=== PATIENT | female | born 1980 ===

== ENCOUNTER 2019-10-07 15:53 | Inpatient (IN) | payer BC ==
[2019-10-07] MEDS ORDERED: Iopamidol-370 76% 500 ML 1 ML ONE (16:06)
[2019-10-07 17:08] LABS: Hemoglobin 11.8 g/dL (12.0-16.0); Mean Corpuscular HGB CONC 33.4 g/dL (32.0-36.0); Mean Corpuscular Hemoglobin 34.8 pg (27.0-31.0); RBC Distribution Width 13.1 % (11.5-14.5)
[2019-10-07 17:29] LABS: Band 23 % (5-11); Large Platelets SLIGHT; Lymphocytes 19 % (21-51); MDiff Complete? YES; Mean Platelet Volume 11.2 fL (7.4-10.4); Metamyelocyte 5 % (0-0); Monocytes 6 % (0-10); Myelocyte 3 % (0-0); Neutrophil 44 % (42-75); Platelet Count 46 thou/uL (130-400)
[2019-10-07] MEDS ORDERED: Lorazepam 2 MG/ML VIAL ONE ×2 (17:49→23:03)
[2019-10-07 18:33] LABS: Chloride 101 mmol/L (98-107); Potassium 3.9 mmol/L (3.5-5.1); Sodium 138 mmol/L (136-145)
[2019-10-07 18:34] LABS: Calcium 9.5 mg/dL (7.8-10.44)
[2019-10-07 18:35] LABS: Globulin 3.5 g/dL (2.4-3.5); Glucose 119 mg/dL (70-105); Protein, Total 7.5 g/dL (6.0-8.3)
[2019-10-07 18:36] LABS: Anion Gap 23 mmol/L (10-20); Carbon Dioxide 18 mmol/L (22-29)
[2019-10-07 18:37] LABS: Alcohol Less than 10 mg/dL (Less than 10); Bilirubin, Total 7.9 mg/dL (0.2-1.2)
[2019-10-07 18:38] LABS: Alkaline Phosphatase 132 U/L (40-110); Calc. Creatinine Clearance 0 mL/min (70-130); Estimated GFR-MDRD 83
[2019-10-07 18:39] LABS: BUN (Urea Nitrogen) 6 mg/dL (7.0-18.7)
[2019-10-07 18:40] LABS: AST (SGOT) 296 U/L (5-34)
[2019-10-07 18:41] LABS: ALT (SGPT) 68 U/L (8-55)
--- NOTE | 2019-10-07 18:51 | CT ---
CT BRAIN: 10/07/2019 PROVIDED CLINICAL HISTORY: Frequent falls. FINDINGS: The ventricular system appears normal in size and morphology. There is no evidence for intracranial h emorrhage or mass effect. The extracranial soft tissues and osseous structures demonstrate an unremar kable CT appearance. IMPRESSION: No evidence for intracranial hemorrhage or mass effect. POS: SANDRITA
[2019-10-07] MEDS ORDERED: Thiamine 100 MG TAB ONE (19:07)
[2019-10-07 19:14] LABS: Pregnancy Test - Urine (BHCG) Negative (Negative); Pregu Control Background? CLEAR/WHITE (CLR/WHITE); Pregu Control Bar Appear? YES (CONTROL BAR); Specific Gravity 1.032 (1.002-1.036)
[2019-10-07 19:17] LABS: Bilirubin 2+ (Negative); Blood, Urine Negative (Negative); Clarity Turbid (Clear); Glucose, Urine (Dipstick) 30 mg/dL (Negative); Leukocyte 75 Leu/uL (Negative); Nitrite Negative (Negative); Protein, Urine (Dipstick) 70 mg/dL (Neg-Trace); RBC/HPF 0-3 HPF (0-3)
[2019-10-07 19:20] LABS: Bacteria/HPF Rare-Few HPF (None Seen)
[2019-10-07 19:23] LABS: Amphetamine Not Detected (NotDetected); Barbiturates Screen Not Detected (NotDetected); Benzodiazepine Screen Not Detected (NotDetected); Cocaine Metabolite Screen Not Detected (NotDetected); Medtox Control Line Valid? VALID (VALID); Medtox Reader # READER 4; Methadone Not Detected (NotDetected); Methamphetamine Not Detected (NotDetected); Opiate Screen Detected (NotDetected); Oxycodone Screen Not Detected (NotDetected); Phencyclidine (PCP) Not Detected (NotDetected); THC/Cannabinoid Screen Not Detected (NotDetected); Tricyclic Screen Not Detected (NotDetected)
[2019-10-07] MEDS ORDERED: Thiamine HCl 200 MG/2 ML VIAL SLOW IVP SCH (19:30)
--- NOTE | 2019-10-07 19:44 | ULT ---
Exam: Right upper quadrant ultrasound: HISTORY: Right upper quadrant pain and jaundice. Elevated liver function tests. COMPARISON: None FINDINGS: Liver: Portions of the liver are obscured due to shadowing from bowel gas and adjacent ribs. However, the liver is enlarged measuring 23.7 cm in craniocaudal dimensions and also demonstrates coarsened echotexture and increased echogenicity likely reflective of diffuse fatty infiltration. Gallbladder: There is increased echogenic material seen within the gallbladder lumen suggesting sludg e within the gallbladder. No definite gallbladder calculus is seen. There is no gallbladder wall thickening or pericholecystic fluid identified. Common bile duct: The common duct is normal in caliber measuring 2 mm in diameter. Pancreas: Mostly obscured due to shadowing from bowel gas, but where visualized, the pancreas does de monstrate a grossly normal sonographic appearance. Right kidney: There is an anechoic cystic appearing structure seen in the midportion right kidney rony suring 2.5 cm which demonstrates sonographic characteristics most compatible with a small parapelvic renal cyst. No hydronephrosis is seen. The right kidney measures 12.5 cm in length. IVC: The visualized IVC demonstrates a normal sonographic appearance. IMPRESSION: 1. Hepatomegaly with diffuse fatty infiltration of the liver. Portions of the liver are obscured due to shadowing from bowel gas and adjacent ribs, but no definitive focal hepatic lesion is delineated on sonographic evaluation. 2. Sludge within the gallbladder lumen. The common duct is normal in caliber measuring 2 mm in diamet er. 3. Right renal parapelvic cyst.
--- NOTE | 2019-10-07 21:46 | CT ---
CT ABDOMEN AND PELVIS WITH IV CONTRAST: HISTORY: Mild right upper quadrant abdominal pain with jaundice. Bloating. COMPARISON: None. FINDINGS: There is atelectasis present at the right lung base and there is also elevation of the right hemidiap hragm. The left lung base is clear. The liver is enlarged, measuring 25.7 cm in craniocaudal dimensions. The liver also demonstrates diff use diminished attenuation, suggesting diffuse fatty infiltration. There is a 9 mm, irregular focus o f enhancement seen within the medial segment of the left hepatic lobe, which is difficult to further characterize. There is a large fluid attenuation density seen involving the superior pole left kidney, measuring 8. 2 cm, compatible with a cyst. Multiple additional hypodense lesions are also seen in the left kidney, also most suggestive of renal cysts. A small, 2.2 cm, hypodense lesion is seen in the mid portion ri ght kidney, also most compatible with a cyst. A few subcentimeter, vcl-kuiib-vd-characterize, hypoden se lesions are seen in the left kidney. The spleen, pancreas, bilateral adrenal glands, abdominal aorta and decompressed urinary bladder demo nstrate a normal CT appearance. The uterus is small in size. There is colonic diverticulosis. The appendix is not visualized but there are no secondary signs to suggest appendicitis. Loops of sma ll bowel are normal in caliber. There is no free fluid, fluid collection or lymphadenopathy seen in the abdomen or pelvis. IMPRESSION: 1. Hepatomegaly with diffuse fatty infiltration of the liver. 2. Subcentimeter focus of enhancement seen within the left hepatic lobe, which is too small to accura tely characterize. Follow up evaluation in 6 months may be helpful. 3. Elevation of the right hemidiaphragm with volume loss right lung base. 4. Bilateral renal cysts. 5. Colonic diverticulosis. 6. Small size of the uterus. POS: H
[2019-10-07 23:22] LABS: Bilirubin, Total 8.5 mg/dL (0.2-1.2)
[2019-10-08 01:03] LABS: HBSAg Index 0.41 S/CO (0-0.99); Hep A IgM AB Non-Reactive (NonReactive); Hep A IgM S/CO 0.13 S/CO (0-0.79); Hep B Surf Ag Non-Reactive S/CO (NonReactive); Hep C IgG Ab Non-Reactive (NonReactive); Hep C Index 0.17 S/CO (0-0.79); Hepatitis B Core IgM Abs Non-Reactive (NonReactive)
[2019-10-08] MEDS ORDERED: Sodium Chloride 0.9% 1,000 ML IV SCH (01:45)
--- NOTE | 2019-10-08 01:52 | HP ---
PRIMARY CARE PHYSICIAN: Dr. Kirby at [facility]. CHIEF COMPLAINT: Weakness, falls, fatigue xdays. HISTORY OF PRESENT ILLNESS: This is a 39-year-old obese female, chronic alcoholic, past medical history of hypertension and anxiety, who presents to [facility] ER for complaints of recurrent falls in the past several days associated with weakness and fatigue, prompting evaluation. The patient notes chronic alcohol dependence, drinking 2 to 3 alcoholic drinks on a nightly basis and admits to withdrawal symptoms with cessation. She reports for the past several weeks, she has been having neuropathy symptoms in her fingers and toes and on Monday, simply fell to the ground and had to be helped up by her spouse. Today, she had two recurrent episodes of falls which she was able to get up on her own without head trauma or syncope, but noted generalized weakness throughout her body and sought evaluation. She denies any abdominal pain, emesis, fevers or chills, but notes nauseating symptoms causing her to gag and unable to take her oral medications. She also notes some sweats after trying to take her oral medications. She notes her urine color appeared to be darker in appearance today but denied infection complaints. Emergency room CBC revealed severe thrombocytopenia of 46 and chemistries revealed elevated liver enzymes with total bilirubin of 7.9, alkaline phosphatase 139, AST 296, ALT 68 with albumin of 4.0. Unremarkable INR. Negative serum HCG and negative serum ethanol level. Chemistries revealed anion gap metabolic acidosis. CT abdomen and pelvis revealed hepatomegaly with 23.7 cm liver and gallbladder ultrasound revealed sludge with CBD of 2 mm. The patient was administered 2 L normal saline bolus, multiple doses of IV Ativan, and hepatitis panel has been ordered. The patient denies any prior history of HIV, hepatitis, or known chronic liver disease. She denies any illicit drug use. Serum ammonia level is 42. At bedside, the patient is accompanied by spouse. She corroborates history. She states her last lab work was approximately two years ago. Has appointment with her primary care physician tomorrow. She is otherwise compliant on her home medications. I have requested nursing staff to add CPK to patient's previous lab work. PAST MEDICAL HISTORY: Morbid obesity, chronic alcohol dependence, hypertension, anxiety. PAST SURGICAL HISTORY: Appendectomy. Last menstrual period, the patient states she is on a Depo injection and has not had a period in long time. SOCIAL HISTORY: The patient admits to chronic alcohol dependence, drinking at least three mixed drinks on a nightly basis. She denies tobacco or illicit drug use. ALLERGIES: REPORTED TO BENADRYL. REVIEW OF SYSTEMS: Pertinent positives as per HPI. Remainder of review of systems negative. The patient reports decreased oral intake. MEDICATIONS: Reviewed as per admission medication reconciliation. FAMILY HISTORY: The patient's mother is and had diabetes and congestive heart failure related complications. PHYSICAL EXAMINATION: VITAL SIGNS: Blood pressure ranges from 105/77 to 140/75, pulse 130, sinus tachycardia, temperature 99.8-100.1, oxygen saturation 98% on room air, respirations 16 to 18, unlabored. GENERAL APPEARANCE: This is a young obese female, awake, alert, oriented, coherent, lucid, jaundiced appearance. HEENT: Normocephalic, atraumatic. No facial asymmetry. Mucous membranes appear moist. Noted scleral icterus. NECK: Supple. CARDIOVASCULAR: S1, S2. Regular rate and rhythm. No harsh murmurs. No reproducible chest wall tenderness to palpation. LUNGS: Bilaterally equal air entry. Clear to auscultation. Nonlabored respirations. No wheezing or rales. ABDOMEN: Soft, obese, nondistended, nonspecific tenderness in upper abdomen. EXTREMITIES: No significant edema or cyanosis or deformities noted. There is abrasions overlying bilateral knees and lower extremities. SKIN: Warm to touch without rash or pallor. Skin jaundice noted. Abrasions overlying lower extremities. LABORATORY VALUES: Ammonia 42. Urine drug screen positive for opioids. Urinalysis with turbid appearance, 4.0 urobilinogen, 2+ bilirubin, 75 leukocytes, elevated 20 white blood cells, 7 to 10 squamous epithelial cells. Urine test negative. Serum alcohol level less than 10. Sodium 138, potassium 3.9, chloride 101, bicarb 18, glucose 119, BUN and creatinine 6/0.77, GFR 83, alkaline phosphatase 132, AST 26, ALT 68, albumin 4.0. WBC 5.0 , H and H 11.8/35.4, MCV 104.0, and platelets 46. IMAGING DATA: Right upper quadrant ultrasound reveals hepatomegaly 23.7 cm with coarsened echotexture and increased echogenicity, likely reflective of diffuse fatty infiltration. No gallbladder wall thickening or pericholecystic fluid, but lumen suggesting sludge. CBD 2 mm in diameter. Noncontrast head CT unremarkable. CT abdomen and pelvis also obtained. ASSESSMENT: 1. Acute liver injury of unspecified etiology. The patient admitted as inpatient status and will be placed on telemetry monitoring. Noted marked hyperbilirubinemia with elevated liver enzymes and no definite obstructive pathology noted. The patient noted to have chronic alcohol dependence and progression of liver disease must also be considered. On-call GI will be consulted. The patient received 2 L normal saline bolus in the ER. We will continue maintenance IV fluids, empiric antibiotics, await hepatitis profile, obtain CPK values to assess for rhabdomyolysis, and trend serial liver function test. We will defer consideration for MRCP to electronic gluing machine operator. 2. Recurrent falls of unspecified etiology. We will need to consider metabolic etiologies including infection with urinary tract infection or cholangitis, as well as hyperammonemia. Serum ammonia level is unremarkable at this time. We will start empiric IV Rocephin 1 g daily and continue IV fluids, monitor CBC and chemistries. 3. Anion gap metabolic acidosis, likely secondary to alcoholic ketoacidosis. The patient repeatedly advised alcohol cessation. We will continue IV fluid resuscitation and monitor chemistries. 4. Thrombocytopenia, likely secondary to liver disease and possibly splenic sequestration. Monitor CBC. 5. Generalized weakness and deconditioning, likely secondary to acute liver injury. We will obtain CPK to assess for any concerns for rhabdomyolysis. 6. Peripheral neuropathy. Possible secondary to chronic alcohol dependence and nutritional deficiencies. The patient will benefit from B12 and folate institution. 7. Macrocytosis. Likely secondary to chronic liver disease and possible nutritional deficiencies. 8. Morbid obesity. Unspecified BMI 9. Sinus tachycardia. The patient reports known history of tachycardia and is on once daily oral metoprolol at home, which she was intolerant of this morning. We have asked nursing staff to give 5 mg IV Lopressor and monitor resting heart rates. 10. Hypertension, benign. Deep venous thrombosis prophylaxis. SCDs and ambulation setting. Severe thrombocytopenia. Check a.m. labs, 10/08/2019. DISPOSITION: Inpatient admission. Plan of care discussed with patient's spouse at bedside. The patient seen and examined on 10/07/2019. Job ID: [id number] [id number]
[2019-10-08] MEDS ORDERED: cefTRIAXone\\ROCEPHIN 2 GM in Sodium Chloride 0.9% 100 ML IVPB SCH (02:15)
[2019-10-08] MEDS ORDERED: Metoprolol Tartrate 5 MG/5 ML VIAL IVP SCH (02:30)
[2019-10-08] MEDS: cefTRIAXone\\ROCEPHIN 1 GM in Sodium Chloride 0.9% 100 ML IVPB SCH (02:49)
[2019-10-08] MEDS ORDERED: Ibuprofen 600 MG TAB PO PRN (03:01)
[2019-10-08] MEDS ORDERED: ALPRAZolam 0.25 MG TAB PO PRN (03:02)
[2019-10-08] MEDS ORDERED: Ondansetron PF 4 MG/2 ML Vial IVP PRN (03:05)
[2019-10-08] MEDS ORDERED: traMADol HCl 50 MG TAB PO PRN (03:16)
[2019-10-08 06:10] LABS: ALT (SGPT) 56 U/L (8-55); AST (SGOT) 228 U/L (5-34); Albumin 3.4 g/dL (3.5-5.0); Alkaline Phosphatase 101 U/L (40-110); Anion Gap 16 mmol/L (10-20); BUN (Urea Nitrogen) 6 mg/dL (7.0-18.7); Bilirubin, Total 8.6 mg/dL (0.2-1.2); Calc. Creatinine Clearance 181 mL/min (70-130); Calcium 8.6 mg/dL (7.8-10.44); Carbon Dioxide 22 mmol/L (22-29); Chloride 104 mmol/L (98-107); Estimated GFR-MDRD Greater than 90; Glucose 100 mg/dL (70-105); Potassium 3.8 mmol/L (3.5-5.1); Protein, Total 6.4 g/dL (6.0-8.3); Sodium 138 mmol/L (136-145)
[2019-10-08 06:24] LABS: Band 3 % (5-11); Eosinophils 1 % (0-10); Hemoglobin 10.5 g/dL (12.0-16.0); Lymphocytes 18 % (21-51); MDiff Complete? YES; Mean Corpuscular HGB CONC 33.4 g/dL (32.0-36.0); Mean Corpuscular Hemoglobin 35.3 pg (27.0-31.0); Mean Platelet Volume 11.2 fL (7.4-10.4); Monocytes 12 % (0-10); Neutrophil 66 % (42-75); Platelet Count 36 thou/uL (130-400); Platelet Morphology Comment Appears Decreased; RBC Distribution Width 13.1 % (11.5-14.5); Red Blood Cell (RBC) Count 2.98 mill/uL (4.20-5.40); White Blood Cell (WBC) Count 5.1 thou/uL (4.8-10.8)
[2019-10-08] MEDS ORDERED: Lorazepam 2 MG/ML VIAL ONE (08:11)
[2019-10-08] MEDS ORDERED: Lorazepam 2 MG/ML VIAL SLOW IVP PRN (08:12)
[2019-10-08] MEDS ORDERED: Ziprasidone 20 MG VIAL ONE ×2 (08:16→08:18)
[2019-10-08] MEDS ORDERED: Benzonatate 100 MG CAP PO PRN (08:41)
[2019-10-08] MEDS ORDERED: Docusate 100 MG CAP PO PRN (08:41)
[2019-10-08] MEDS ORDERED: Labetalol HCl 100 MG/20 ML VIAL SLOW IVP PRN (08:41)
[2019-10-08] MEDS ORDERED: Melatonin 3 MG TAB PO PRN (08:41)
[2019-10-08] MEDS ORDERED: FLU VACC QS2019-20(6MOS UP)/PF 60 MCG/0.5 ML SYRINGE IM ONE (09:00)
--- NOTE | 2019-10-08 09:02 | RAD ---
EXAM: XR Chest 1 View Portable PROVIDED CLINICAL HISTORY: CODE STATUS COMPARISON: None FINDINGS: Evaluation is limited by patient positioning and patient body habitus. The cardiac silhouette appears enlarged, which may be partially on the basis of these factors as well as portable technique. There is elevation of the right hemidiaphragm of unknown chronicity. No focal consolidation evident. The supine nature of the examination is not sensitive for detection of pleural fluid or pneumothorax, without gross evidence for such. IMPRESSION: Limited examination without evidence for an acute cardiopulmonary process.
[2019-10-08 09:09] LABS: Actual Bicarbonate (HCO3a) 17.8 mEq/L (22-28); Base Excess (BEa) -7.6 mEq/L (-2.0 to +3.0); Calcium, Ionized 1.12 mmol/L (1.12-1.30); Hemoglobin (Hb) 11.3 g/dL (12.0-16.0); Potassium - ABG Lab 4.04 mmol/L (3.70-5.30); pH, Arterial 7.31 (7.35-7.45)
[2019-10-08 09:11] LABS: Puncture Site L.R.
[2019-10-08] MEDS: chlordiazePOXIDE HCl 25 MG CAP PO SCH ×3 (09:12→20:01)
[2019-10-08] MEDS ORDERED: Sodium Chloride 0.9% 500 ML IV SCH (09:30)
[2019-10-08] MEDS: Multivitamins, Adult 10 ML, Folic Acid 1 MG, Thiamine HCl 100 MG in Dextrose 5 %-0.45 %... IV SCH (09:56)
[2019-10-08] MEDS: Lorazepam 2 MG/ML VIAL SLOW IVP PRN ×2 (11:34→21:10)
[2019-10-08 12:10] LABS: Acetaminophen Less than 6.0 mcg/mL (10.0-30.0); Iron 175 ug/dL (50-170); Iron Binding Capacity, Total 168 mcg/dL (265-497)
--- NOTE | 2019-10-08 12:17 | CON ---
DATE OF CONSULTATION: 10/08/2019 REASON FOR CONSULTATION: Elevated LFTs. HISTORY OF PRESENT ILLNESS: Michaela Connors is a 39-year-old woman who was admitted to the hospital last night. She has a past history of obesity, hypertension, anxiety, evidently resting tachycardia, and alcohol abuse. She says she will have at least 2 to 3 alcoholic beverages including vodka every night, sometimes more. She reports no prior history of liver disease or hepatitis or gallbladder or pancreatic issues. She says over the past few weeks, she has had progressive overall weakness, has been having some paresthesias in the fingers and toes as well as some nausea. She has not had any vomiting or abdominal pain with this, but then over the past several days, she had several falls at home without injury. She presented to the Emergency Department last night and was found to have a positive UA as well as elevated LFTs significantly. Bilirubin is up to 8.6, AST 228, ALT 56. She was started on IV ceftriaxone as well as IV fluids overnight. She did receive Ativan due to a prior history of alcohol withdrawal. However, this morning, she was transferred to the IMCU after a Code Blue was called. The patient evidently had a seizure and became unresponsive. Also more tachycardic and hypotensive. She is currently in the IMCU. Her mental status is actually clear. She is not complaining of any pain. She is saturating well on a nonrebreather mask. She is visibly jaundiced. She denies taking any acetaminophen at all. She says she does frequently take nonsteroidal anti-inflammatory drugs. She says her last drink of alcohol was 2 days ago. Imaging did not demonstrate any biliary dilation, but she does have hepatomegaly with fatty liver. REVIEW OF SYSTEMS: Full review of systems including constitutional, head, eyes, ears, nose, throat, GI, , cardiovascular, respiratory, musculoskeletal, neurologic systems is negative except as noted in the HPI. PAST MEDICAL HISTORY: Morbid obesity, alcohol abuse, alcohol withdrawal, hypertension, anxiety, appendectomy. ALLERGIES: BENADRYL. HOME MEDICATIONS: 1. Probiotic daily. 2. Fish oil 100 mg daily. 3. Metoprolol 100 mg p.o. daily. 4. Ranitidine 300 mg p.o. daily. 5. Lisinopril 20 mg p.o. daily. 6. Depo injection. INPATIENT MEDICATIONS: 1. Albuterol p.r.n. 2. Tessalon Perles p.r.n. 3. Ceftriaxone 1 g IV q.24 hours. 4. Librium 25 mg p.o. t.i.d. 5. Docusate p.r.n. 6. Labetalol p.r.n. 7. Ativan p.r.n. 8. Melatonin 3 mg p.o. q.h.s. p.r.n. 9. Metoprolol 100 mg p.o. daily. 10. Banana bag. 11. Zofran p.r.n. SOCIAL HISTORY: The patient will have at least 2 to 3 alcoholic beverages every day, sometimes more. This includes vodka. She denies smoking or drug use. FAMILY HISTORY: Her mother had CHF. She denies any known history of liver disease in the family. PHYSICAL EXAMINATION: VITAL SIGNS: Temperature 100.1, pulse 141, blood pressure 94/67, 100% oxygen saturation on nonrebreather mask. GENERAL: Obese 39-year-old woman, lying in bed comfortably. She is calm. She is able to answer questions appropriately. She is oriented to person and place. SKIN: She is jaundiced. No rashes were palpable. HEENT: Eyes; she has scleral icterus. Extraocular movements intact. ENT; mucous membranes moist. No oral lesions. LYMPH: No submandibular or supraclavicular lymphadenopathy. NECK: Thyroid nontender to palpation. HEART: Regular tachycardia. LUNGS: Clear to auscultation bilaterally. ABDOMEN: Nondistended. Bowel sounds are present. Soft, nontender to palpation. EXTREMITIES: No peripheral edema. VESSELS: Radial pulses 2+ bilaterally. NEUROLOGIC: Cranial nerves 2 through 12 intact bilaterally. No focal deficits. LABORATORY STUDIES: Hemoglobin 10.5, MCV 106, WBC 5.1, platelets 36. Ammonia was initially 42, now up to 240. CK is 661. Sodium 138, potassium 3.8, BUN 6, creatinine 0.68, glucose 100. Urine test negative. Viral hepatitis serology is negative. Total bilirubin 8.6, alkaline phosphatase 101, AST 228, ALT 56, albumin 3.4. Urinalysis positive for leukocyte esterase and shows 11 to 20 wbc's. Urine drug screen is positive for opioids, but otherwise negative. Alcohol level is negative. IMAGING STUDIES: Chest x-ray shows some elevation of the right hemidiaphragm, otherwise negative. Brain CT shows no acute processes. Ultrasound shows gallbladder sludge, but no gallbladder wall thickening. The common bile duct is normal at [address] of the abdomen and pelvis demonstrates hepatomegaly. There is a 9 mm left liver lesion, which is too small to characterize. She has bilateral renal cysts and diverticulosis. Normal-appearing spleen, pancreas, and bowel. There is no free fluid in the abdomen. ASSESSMENT AND PLAN: 1. Acute hepatitis, likely represents acute alcoholic hepatitis. 2. Thrombocytopenia. 3. Sepsis with urinary tract infection. 4. Alcohol abuse with withdrawal, possible seizure this morning. The patient's presentation seems consistent with acute alcoholic hepatitis. With this degree of thrombocytopenia, she likely has some underlying cirrhosis as well. She does meet sepsis criteria and is currently being treated with resuscitation and antibiotics. Note, she has elevated ammonia level, though mental status is clear and there is no asterixis at this time. From the GI standpoint, we will order additional labs including autoimmune markers, ceruloplasmin, iron studies, etc., to assess for other etiologies of liver disease. We will obtain INR. We will get acetaminophen level, though the patient denies taking any acetaminophen. Trend the laboratory studies. We will go ahead and start lactulose. Hold off on any steroids at this time given urinary tract infection. Continue with antibiotics. I see no imaging evident suggestive of biliary obstructive pathology and she is not really having any biliary symptoms, so no need for consideration of MRCP or ERCP. GI will follow along. Please call anytime with questions or concerns. Job ID: [id number]
[2019-10-08 12:23] LABS: Actual Bicarbonate (HCO3a) 16.4 mEq/L (22-28); Base Excess (BEa) -17.7 mEq/L (-2.0 to +3.0); Calcium, Ionized 1.27 mmol/L (1.12-1.30); Carboxyhemoglobin (COHb) 1.2 gm% (0.0-3.0); Hemoglobin (Hb) 12.1 g/dL (12.0-16.0); O2 Tension (PaO2) 83.9 mmHg (80.0-100.0); Potassium - ABG Lab 4.73 mmol/L (3.70-5.30)
[2019-10-08 12:24] LABS: CO2 Tension 89.2 mmHg (35.0-45.0); pH, Arterial 6.88 (7.35-7.45)
[2019-10-08 12:25] LABS: Puncture Site LBA
--- NOTE | 2019-10-08 13:05 | PDOC.EVN ---
Event Note - Event Note Event Note: Responded to code blue this a.m. After administration of Ativan intravenously and Geodon the patient was talking and calm and cooperative. Patient transferred to intermediate [facility] for. Discussed and updated the patient has been with status change. Discussed case with gastroenterology, Dr. Diaz. Acute alcoholic hepatitis, acute alcohol withdrawal with possible withdrawal seizure, elevated ammonia, and altered mental status. Started Librium scheduled. Patient tells me that she drinks 6+ hard liquor vodka drinks per day and this may be downplaying how severe her alcoholism has become. Patient's believes that she is hiding how much she drinks from him. If patient becomes altered or having any further seizure activity she may require intubation. Prognosis guarded.
[2019-10-08] MEDS: Sodium Chloride 0.9% 1,000 ML IV SCH (20:12)
--- NOTE | 2019-10-09 01:32 | CON ---
DATE OF CONSULTATION: 10/08/2019 HISTORY OF PRESENT ILLNESS: Michaela Connors is a 39-year-old daily drinker who was admitted last night after presenting with complaints of frequent falls. She does have history of alcohol withdrawal in the past. She apparently had a seizure today, was transferred to the intermediate care unit. At the time I was consulted, she was awakening, had no recollection of her seizure. Her gas exchange had improved. First blood gas showed a pH of 6.88 with a CO2 of 89. Her second blood gas, pH 7.31, CO2 of 36. PAST MEDICAL HISTORY: Remarkable for: 1. Daily alcohol use. She drinks vodka, but would not admit to drinking more than 2 drinks. Denied drinking large drinks. 2. She has a history of hypertension. 3. History of appendectomy. SOCIAL HISTORY: She is a nonsmoker. ALLERGIES: SHE REPORTS INTOLERANCE TO BENADRYL. REVIEW OF SYSTEMS: Ten point review of system completed, otherwise negative. FAMILY HISTORY: Negative for lung disease in early age. PHYSICAL EXAMINATION: GENERAL: Michaela Connors is a 39-year-old daily drinker who was admitted last night after presenting with complaints of frequent falls. VITAL SIGNS: She is afebrile. Oximetry is 99, blood pressure 127/84. This morning, there is no record of blood pressures this afternoon in the computer. HEENT: Pupils react. Sclerae are slightly icteric. Extraocular movements are intact. NECK: Supple. LUNGS: Clear. HEART: Regular rhythm. ABDOMEN: Soft. EXTREMITIES: Without clubbing, cyanosis, or edema. LABORATORY DATA: Electrolytes are normal. White count 5.1, hemoglobin 10.5, MCV is 106, platelets 36,000. AST 228, ALT is 56, bilirubin is 8.6, alkaline phosphatase is 101. IMPRESSION: 1. Acute on chronic alcoholic hepatitis. 2. Elevated serum ammonia today with an ammonia of 240 at 8 o'clock this morning. 3. Hypoalbuminemia. 4. Thrombocytopenia, most likely related to her alcohol consumption. 5. Anemia of chronic disease. Coag studies probably need to be ordered to complete evaluation of her liver synthetic function. Given her severe hyperbilirubinemia and elevated liver enzymes as well as elevated ammonia, it would not be unreasonable to have Gastroenterology to look in on her , so that she has somebody following this as an outpatient. It has been emphasized to her that abstinence is the only option for her at this point. We will follow the other physicians caring for. She is stable from a cardiorespiratory standpoint at this point in time. This is a 70 minute consult, with greater than 50% of time spent on unit coordinating care. Job ID: [id number] [id number]
[2019-10-09] MEDS: cefTRIAXone\\ROCEPHIN 1 GM in Sodium Chloride 0.9% 100 ML IVPB SCH (01:52)
[2019-10-09 03:48] LABS: INR-International Normal Ratio 1.2; Prothrombin Time 14.7 SEC (12.0-14.7)
[2019-10-09 04:08] LABS: ALT (SGPT) 54 U/L (8-55); AST (SGOT) 204 U/L (5-34); Albumin 3.4 g/dL (3.5-5.0); Alkaline Phosphatase 100 U/L (40-110); Anion Gap 14 mmol/L (10-20); BUN (Urea Nitrogen) 6 mg/dL (7.0-18.7); Bilirubin, Total 9.9 mg/dL (0.2-1.2); Calc. Creatinine Clearance 186 mL/min (70-130); Calcium 8.7 mg/dL (7.8-10.44); Carbon Dioxide 20 mmol/L (22-29); Chloride 106 mmol/L (98-107); Estimated GFR-MDRD Greater than 90; Glucose 93 mg/dL (70-105); Potassium 3.8 mmol/L (3.5-5.1); Protein, Total 6.4 g/dL (6.0-8.3); Sodium 136 mmol/L (136-145)
[2019-10-09 04:40] LABS: Band 9 % (5-11); Eosinophils 1 % (0-10); Hemoglobin 10.1 g/dL (12.0-16.0); Lymphocytes 32 % (21-51); MDiff Complete? YES; Mean Corpuscular HGB CONC 33.1 g/dL (32.0-36.0); Mean Corpuscular Hemoglobin 35.2 pg (27.0-31.0); Mean Platelet Volume 11.4 fL (7.4-10.4); Monocytes 14 % (0-10); Neutrophil 44 % (42-75); Platelet Count 47 thou/uL (130-400); Platelet Morphology Comment Appears Decreased; Red Blood Cell (RBC) Count 2.86 mill/uL (4.20-5.40); White Blood Cell (WBC) Count 6.1 thou/uL (4.8-10.8)
[2019-10-09] MEDS: Sodium Chloride 0.9% 1,000 ML IV SCH ×2 (05:51→16:23)
[2019-10-09] MEDS: chlordiazePOXIDE HCl 25 MG CAP PO SCH ×3 (08:19→20:21)
[2019-10-09] MEDS: Multivitamins, Adult 10 ML, Folic Acid 1 MG, Thiamine HCl 100 MG in Dextrose 5 %-0.45 %... IV SCH (08:19)
[2019-10-09] MEDS ORDERED: Lisinopril 20 MG TAB PO SCH (09:30)
[2019-10-09] MEDS ORDERED: Lactinex Tablet PO SCH (09:30)
[2019-10-09] MEDS: Lorazepam 1 MG TAB PO PRN ×2 (09:32→16:19)
--- NOTE | 2019-10-09 10:00 | PRG ---
DATE OF SERVICE: 10/09/2019 SUBJECTIVE: Ms. Connors is feeling a lot better today. She is mentally clear. She got several hours of sleep last night. No further concern for seizure activity. There is no abdominal pain. She ate a good breakfast this morning. OBJECTIVE: VITAL SIGNS: Temperature 98.6, heart rate 135, blood pressure 138/82, and 95% oxygen saturation on room air. GENERAL: Jaundiced, sitting up in bed comfortably, in no distress. Alert and fully oriented. HEART: Regular. Tachycardia. LUNGS: Clear to auscultation bilaterally. ABDOMEN: Bowel sounds present. Soft, nontender to palpation. EXTREMITIES: No peripheral edema. LABORATORY STUDIES: Hemoglobin 10.1, WBC 6.1, platelets 47. INR is 1.2. Sodium 136, potassium 3.8, BUN 6, creatinine 0.66, calcium 8.7, total bilirubin is up to 9.9, AST is down to 204, ALT has normalized to 54, alkaline phosphatase is 100, albumin is 3.4. Ferritin is elevated at 5228, iron is also elevated to 175, TIBC is low at 168. Serum acetaminophen level was undetectable. Serum total IgG is 1218, which is in normal range. Viral hepatitis serologies are all negative. Further labs including alpha-1 antitrypsin phenotype, ELIO, ASMA, AMA, and ceruloplasmin are all pending. ASSESSMENT AND PLAN: 1. Acute alcoholic hepatitis. 2. Thrombocytopenia. 3. Alcohol abuse with withdrawal. 4. Urinary tract infection. The patient has had significant clinical improvement. Transaminases have been trending down, though bilirubin has trended up. This is not surprising. I discussed with the patient that her presentation is consistent with acute alcoholic hepatitis, but with normal INR, normal creatinine, down trending transaminases, prognosis should be good as long as she completely quit drinking alcohol. We are awaiting further results of liver lab workup, but I do suspect this is all related to alcohol. With the elevated iron studies, we will go ahead and order hemochromatosis genetic profile to rule this out as a contributor. The patient is going to need close outpatient followup to trend the LFTs, and continue to encourage abstinence from alcohol. The patient feels very confident that she will be able to quit completely. Job ID: [id number]
[2019-10-09] MEDS: Lorazepam 2 MG/ML VIAL SLOW IVP PRN ×2 (12:56→20:09)
--- NOTE | 2019-10-09 13:15 | PDOC.HOSPP ---
- Subjective Subjective: Seen and examined. Patient significantly better over the past 24 hours. She is talking in full sentences. She remains very tremulous, has not been using much oral Ativan or intravenous Ativan. Will increase Librium. Some hallucinations from ETOH withdrawal. at bedside, time was given for questions, all answered in detail. Patient and family are happy with plan of care. - Objective Vital Signs & Weight: Vital Signs (12 hours) Temp BP Pulse Ox 10/09/19 11:51 98.2 F 10/09/19 09:31 146/88 H 10/09/19 08:00 95 10/09/19 07:21 98.6 F 10/09/19 04:00 98.0 F Weight Admit Weight 229 lb 4.492 oz Weight 243 lb 2 oz Most Recent Monitor Data Heart Rate from ECG 129 NIBP 135/103 NIBP BP-Mean 113 Respiration from ECG 30 SpO2 96 I&O: 10/08/19 10/09/19 10/10/19 06:59 06:59 06:59 Intake Total 5063 Output Total 1325 Balance 3738 Result Diagrams: 10/09/19 03:32 10/09/19 03:32 Radiology Reviewed by me: Yes Hospitalist ROS - Review of Systems All other systems reviewed; all pertinent +/- noted in HPI/Subj - Medication Medications: Active Medications Generic Name Dose Route Start Last Admin Trade Name Freq PRN Reason Stop Dose Admin Ceftriaxone Sodium 1 gm/ 100 mls @ 200 mls/hr 10/08/19 03:00 10/09/19 01:52 Sodium Chloride IVPB 100 mls Q24HR AYESHA Administration Multivitamins 10 ml/ Folic 1,011.2 mls @ 100 mls/hr 10/08/19 09:30 10/09/19 08:19 Acid 1 mg/ Thiamine HCl 100 mg IV 10/10/19 09:31 1,011.2 mls / Dextrose/Sodium Chloride Q24HR AYESHA Administration Sodium Chloride 1,000 mls @ 100 mls/hr 10/08/19 20:00 10/09/19 05:51 Normal Saline 0.9% IV 1,000 mls .Q10H AYESHA Administration Lactulose 20 gm 10/08/19 15:00 10/09/19 08:18 Lactulose PO 20 gm TID AYESHA Administration Lorazepam 1 mg 10/08/19 08:35 10/09/19 12:56 Ativan SLOW IVP 1 mg Q2H PRN Administration Seizures Lorazepam 1 mg 10/09/19 08:59 10/09/19 09:32 Ativan PO 1 mg Q4H PRN Administration Anxiety/Agitation Melatonin 3 mg 10/08/19 08:41 10/09/19 01:50 Melatonin PO 3 mg HSPRN PRN Administration Insomnia - Exam General - other findings: anxious, tremulous Eye: anicteric sclera ENT: normocephalic atraumatic, moist mucosa Neck: supple, symmetric, no lymphadenopathy Heart: no murmur, no gallops, no rubs Heart - other findings: Sinus tachycardia Respiratory: CTAB, no wheezes, no rales, no ronchi Gastrointestinal: soft, non-tender, no guarding, no rigidity Extremities: no edema Skin: no lesions, no rashes Neurological: cranial nerve grossly intact, no weakness Neurological - other findings: Tremulous/ shaking of hands with intention Musculoskeletal: generalized weakness Psychiatric: A&O x 3 Hosp A/P (1) Alcohol abuse Code(s): F10.10 - ALCOHOL ABUSE, UNCOMPLICATED Status: Acute (2) Alcohol withdrawal delirium Code(s): F10.231 - ALCOHOL DEPENDENCE WITH WITHDRAWAL DELIRIUM Status: Acute (3) Seizure Code(s): R56.9 - UNSPECIFIED CONVULSIONS Status: Acute (4) Alcoholic hepatitis Code(s): K70.10 - ALCOHOLIC HEPATITIS WITHOUT ASCITES Status: Acute (5) Altered mental status Code(s): R41.82 - ALTERED MENTAL STATUS, UNSPECIFIED Status: Acute (6) HTN (hypertension) Code(s): I10 - ESSENTIAL (PRIMARY) HYPERTENSION Status: Acute (7) Obesity Code(s): E66.9 - OBESITY, UNSPECIFIED Status: Acute (8) Alcohol abuse with intoxication with complication Code(s): F10.129 - ALCOHOL ABUSE WITH INTOXICATION, UNSPECIFIED Status: Acute - Plan Plan: Intermediate medical care for gastroenterology consultation, recommendations appreciated pulmonary/critical-care consultation, recommendations patient increase Librium for uncontrolled alcohol abuse with persistent tremor and hallucinations Patient continues to minimize the severity of Etoh use and states she only has 2 drinks per day, she hides it from her but he believes +6 drinks daily oral Ativan PRN withdrawal symptoms IV Ativan PRN agitation and anxiety IV Ativan PRN seizure with acute alcoholic hepatitis consideration for steroids was addressed to myself and gastroenterology, however in the setting of acute urinary tract infection we decided against steroid therapy at this time seizure precautions IV antibiotics urine culture, de-escalate to culture and sensitivity as able status post banana bag IV fluid resuscitation restart home medications for blood pressure and tachycardia blood pressure control blood sugar control G.I. prophylaxis DVT prophylaxis
[2019-10-09] MEDS ORDERED: Lorazepam 2 MG/ML VIAL SLOW IVP SCH (13:30)
[2019-10-09] MEDS: Ziprasidone 20 MG VIAL IM PRN ×2 (13:58→20:09)
[2019-10-09 15:51] LABS: ANA Symphony (Qualitative) Negative (Negative); ANA Symphony (Quantitative) 0.3 Ratio (< 0.7 Negative); EliA Vaculitis New Method **** NEW METHOD ****; Mitochondrial Ab 0.9 U/mL (<4 Negative); dsDNA IgG Antibody Less than 0.5 IU/mL (<10 Negative)
--- NOTE | 2019-10-09 20:20 | PRG ---
DATE OF SERVICE: 10/09/2019 SUBJECTIVE: This morning actually reasonably coherent, cooperative. This afternoon, she began hallucinating. We had a long discussion about her alcohol use with her in the room and I recommended that she get actively involved with alcoholics anonymous perhaps for the rest of her life. Hospitalist is managing medications for alcohol withdrawal. Overall, she is not having any issues that lead me to believe she has any respiratory compromise. IMPRESSION: Encephalopathy. May be hepatic mediated given her acute alcoholic hepatitis. Her ammonia yesterday was 240, so this will probably need to be followed up as well. Her bilirubin has gone up to 9.9. PLAN: We will continue supportive care. Job ID: [id number]
[2019-10-09] MEDS: Melatonin 3 MG TAB PO SCH (20:22)
[2019-10-10] MEDS: cefTRIAXone\\ROCEPHIN 1 GM in Sodium Chloride 0.9% 100 ML IVPB SCH (02:53)
[2019-10-10] MEDS: Sodium Chloride 0.9% 1,000 ML IV SCH ×2 (02:55→10:13)
[2019-10-10 03:57] LABS: INR-International Normal Ratio 1.2; Prothrombin Time 15.3 SEC (12.0-14.7)
[2019-10-10 04:04] LABS: ALT (SGPT) 44 U/L (8-55); AST (SGOT) 169 U/L (5-34); Albumin 3.1 g/dL (3.5-5.0); Alkaline Phosphatase 93 U/L (40-110); Anion Gap 13 mmol/L (10-20); BUN (Urea Nitrogen) 6 mg/dL (7.0-18.7); Bilirubin, Total 10.7 mg/dL (0.2-1.2); Calc. Creatinine Clearance 194 mL/min (70-130); Calcium 8.6 mg/dL (7.8-10.44); Carbon Dioxide 21 mmol/L (22-29); Chloride 111 mmol/L (98-107); Estimated GFR-MDRD Greater than 90; Globulin 2.8 g/dL (2.4-3.5); Glucose 85 mg/dL (70-105); Potassium 3.7 mmol/L (3.5-5.1); Protein, Total 5.9 g/dL (6.0-8.3); Sodium 141 mmol/L (136-145)
[2019-10-10] MEDS: Lorazepam 2 MG/ML VIAL SLOW IVP PRN ×2 (04:11→10:48)
[2019-10-10 05:09] LABS: Band 7 % (5-11); Eosinophils 2 % (0-10); Hemoglobin 9.6 g/dL (12.0-16.0); Lymphocytes 20 % (21-51); MDiff Complete? YES; Macrocytosis SLIGHT = 6-15 cells (100X) (0-5/hpf); Mean Corpuscular Hemoglobin 35.5 pg (27.0-31.0); Mean Platelet Volume 10.7 fL (7.4-10.4); Metamyelocyte 1 % (0-0); Monocytes 18 % (0-10); Neutrophil 52 % (42-75); Platelet Count 77 thou/uL (130-400); Platelet Morphology Comment Appears Decreased; RBC Distribution Width 13.6 % (11.5-14.5); White Blood Cell (WBC) Count 6.5 thou/uL (4.8-10.8)
[2019-10-10] MEDS: Lactinex Tablet PO SCH (07:43)
[2019-10-10] MEDS: chlordiazePOXIDE HCl 25 MG CAP PO SCH ×3 (07:44→21:16)
[2019-10-10] MEDS: Lisinopril 20 MG TAB PO SCH (07:44)
[2019-10-10] MEDS: prednisoLONE 15 MG/5 ML UDCUP PO SCH (10:12)
--- NOTE | 2019-10-10 12:37 | PDOC.HOSPP ---
- Subjective Subjective: Patient and IMCU, at bedside, questions are asked, all answered in detail. Patient not hallucinating this morning. Patient is not tremulous to shaky. She did miss a dose of Librium last night with somnolence. I have gone down on Librium today. If she is having any shaking later on in the afternoon we will use Ativan. Patient having some upper airway stridor over her larynx. No sore throat. No wheezing on oscillatory exam. With alcoholic hepatitis, will start oral steroids now. Bladder infection under control on current antibiotics. Steroids will help with upper airway stridor. Patient breathing well on room air. - Objective Vital Signs & Weight: Vital Signs (12 hours) Temp Pulse Pulse BP BP BP Pulse Ox 10/10/19 10:26 97.2 F L 10/10/19 10:15 115 H 95 129/89 124/81 10/10/19 08:00 100 10/10/19 07:44 124/81 10/10/19 07:00 98.3 F 10/10/19 03:26 98.9 F Pulse Ox Pulse Ox 10/10/19 10:26 10/10/19 10:15 96 98 10/10/19 08:00 10/10/19 07:44 10/10/19 07:00 10/10/19 03:26 Weight Admit Weight 229 lb 4.492 oz Weight 246 lb 8 oz Most Recent Monitor Data Heart Rate from ECG 92 NIBP 129/89 NIBP BP-Mean 102 Respiration from ECG 27 SpO2 95 I&O: 10/09/19 10/10/19 10/11/19 06:59 06:59 06:59 Intake Total 5063 1230 Output Total 1325 1350 Balance 3738 -120 Result Diagrams: 10/10/19 03:24 10/10/19 03:24 Radiology Reviewed by me: Yes Hospitalist ROS - Review of Systems All other systems reviewed; all pertinent +/- noted in HPI/Subj - Medication Medications: Active Medications Generic Name Dose Route Start Last Admin Trade Name Freq PRN Reason Stop Dose Admin Acidophilus 1 tab 10/10/19 09:00 10/10/19 07:43 Floranex PO 1 tab DAILY AYESHA Administration Albuterol/Ipratropium 3 ml 10/08/19 08:41 10/10/19 00:14 Duoneb NEB 3 ml Q4H PRN Administration SOB &/or Wheezing Chlordiazepoxide HCl 25 mg 10/09/19 15:00 10/10/19 07:44 Librium PO 25 mg TID AYESHA Administration Ceftriaxone Sodium 1 gm/ 100 mls @ 200 mls/hr 10/08/19 03:00 10/10/19 02:53 Sodium Chloride IVPB 100 mls Q24HR AYESHA Administration Sodium Chloride 1,000 mls @ 50 mls/hr 10/10/19 08:52 10/10/19 10:13 Normal Saline 0.9% IV 1,000 mls .Q20H AYESHA Administration Lactulose 20 gm 10/08/19 15:00 10/10/19 07:44 Lactulose PO 20 gm TID AYESHA Administration Lisinopril 20 mg 10/10/19 09:00 10/10/19 07:44 Zestril PO 20 mg DAILY AYESHA Administration Lorazepam 1 mg 10/08/19 08:35 10/09/19 12:56 Ativan SLOW IVP 1 mg Q2H PRN Administration Seizures Lorazepam 1 mg 10/09/19 08:59 10/09/19 16:19 Ativan PO 1 mg Q4H PRN Administration Anxiety/Agitation Lorazepam 1 mg 10/09/19 12:58 10/10/19 10:48 Ativan SLOW IVP 1 mg Q4H PRN Administration Anxiety/Agitation Melatonin 3 mg 10/08/19 08:41 10/09/19 01:50 Melatonin PO 3 mg HSPRN PRN Administration Insomnia Melatonin 9 mg 10/09/19 21:00 10/09/19 20:22 Melatonin PO Not Given HS [facility] Metoprolol Succinate 100 mg 10/10/19 09:00 10/10/19 07:44 Toprol Xl PO 100 mg DAILY AYESHA Administration Prednisolone 40 mg 10/10/19 09:00 10/10/19 10:12 Orapred PO 40 ml DAILY AYESHA Administration Ziprasidone 20 mg 10/09/19 13:34 10/09/19 20:09 Geodon IM 20 mg Q4H PRN Administration Agitation - Exam General Appearance: NAD, awake alert Eye: anicteric sclera ENT: normocephalic atraumatic, moist mucosa Neck: supple, symmetric, no lymphadenopathy Heart: no murmur, no gallops, no rubs Respiratory: CTAB, no wheezes, no rales, no ronchi, rales, rhonchi Respiratory - other findings: Wheezing over the larynx Gastrointestinal: soft, non-tender, non-distended, no guarding, no rigidity Extremities: no edema Skin: no lesions, no rashes Neurological: cranial nerve grossly intact, normal sensation to touch, no focal deficits Musculoskeletal: generalized weakness Psychiatric: normal affect, normal behavior, A&O x 3 Hosp A/P (1) Alcohol abuse Code(s): F10.10 - ALCOHOL ABUSE, UNCOMPLICATED Status: Acute (2) Alcohol withdrawal delirium Code(s): F10.231 - ALCOHOL DEPENDENCE WITH WITHDRAWAL DELIRIUM Status: Acute (3) Seizure Code(s): R56.9 - UNSPECIFIED CONVULSIONS Status: Acute (4) Alcoholic hepatitis Code(s): K70.10 - ALCOHOLIC HEPATITIS WITHOUT ASCITES Status: Acute (5) Altered mental status Code(s): R41.82 - ALTERED MENTAL STATUS, UNSPECIFIED Status: Acute (6) HTN (hypertension) Code(s): I10 - ESSENTIAL (PRIMARY) HYPERTENSION Status: Acute (7) Obesity Code(s): E66.9 - OBESITY, UNSPECIFIED Status: Acute (8) Alcohol abuse with intoxication with complication Code(s): F10.129 - ALCOHOL ABUSE WITH INTOXICATION, UNSPECIFIED Status: Acute - Plan Plan: Intermediate medical care for gastroenterology consultation, recommendations appreciated pulmonary/critical-care consultation, recommendations patient PT/ OT eval and treat - several falls at home - may benefit for short course of rehab to continue to wean Librium in a controlled setting Decrease Librium back to 25 TID as was on yesterday morning Patient continues to minimize the severity of Etoh use and states she only has 2 drinks per day, she hides it from her but he believes +6 drinks daily oral Ativan PRN withdrawal symptoms IV Ativan PRN agitation and anxiety IV Ativan PRN seizure seizure precautions with acute alcoholic hepatitis consideration start steroids UTI controlled on ABX IV antibiotics urine culture, de-escalate to culture and sensitivity as able status post banana bag IV fluid resuscitation Continue home medications for blood pressure and tachycardia blood pressure control blood sugar control G.I. prophylaxis DVT prophylaxis
[2019-10-10] MEDS ORDERED: Sterile Water 10 ML VIAL FS PRN (13:35)
[2019-10-10 14:08] VITALS: BMI 37.5
[2019-10-10 14:10] LABS: Smooth Muscle Total ABS 6 Units (0-19)
--- NOTE | 2019-10-10 14:45 | PQF ---
DATE: 10-10-19 ATTN: DR. PAULINO BRYAN Please exercise your independent, professional judgment in responding to the clarification form. Clinical indicators are provided on the bottom of this form for your review Please check appropriate box(s): [ XX] Encephalopathy: Type: [ XX] Acute [ ] Subacute [ ] Chronic Etiology: [ XX ] Metabolic [ ] Toxic [ ] Hepatic w/o Coma [ ] Septic [ ] Other (please specify) [ ] Transient Alteration of Awareness [ ] Other diagnosis [ ] Unable to determine In addition, please specify: Present on Admission (POA): [ XX ] Yes [ ] No [ ] Unable to determine For continuity of documentation, please document condition throughout progress notes and discharge summary. Thank You. CLINICAL INDICATORS - SIGNS / SYMPTOMS / LABS / RESULTS AND LOCATION IN EMR: PN DR. PAULINO BRYAN 10-08-19: ACUTE ALCOHOLIC HEPATITIS, ACUTE ALCOHOL WITHDRAWAL WITH POSSIBLE WITHDRAWAL SEIZURE, ELEVATED AMMONIA AND ALTERED MENTAL STATUS PN DR. PAULINO BRYAN 10-07-19: SOME HALLUCINATIONS FROM ETOH WITHDRAWAL, AMS CONSULT NOTE DR. MAURER 10-09-19: ENCEPHALOPATHY RISK FACTORS / RESULTS AND LOCATION IN EMR: PN DR. PAULINO BRYAN 10-07-19: SOME HALLUCINATIONS FROM ETOH WITHDRAWAL, AMS CONSULT NOTE DR. MAURER 10-09-19: ENCEPHALOPATHY, MAY BE HEPATIC MEDIATED GIVEN HER ACUTE ALCOHOLIC HEPATITIS CONSULT NOTE DR. CARDONA 10-08-19: SEPSIS WITH UTI TREATMENTS / RESULTS AND LOCATION IN EMR: ER NOTE 10-07-19: IVF X2 MAR: 10-09-19: LIBRIUM PO, 10-08-19: LACTULOSE, ROCEPHIN IV (This form is maintained as a part of the permanent medical record) 2014 [employer]. All Rights Reserved HERIBERTO [email or web address] Office: [phone] [facility]
--- NOTE | 2019-10-10 14:56 | PQF ---
DATE: 10-10-19 ATTN: DR. PAULINO BRYAN Please exercise your independent, professional judgment in responding to the clarification form. Clinical indicators are provided on the bottom of this form for your review Please check appropriate box(s) to clarify if the following diagnosis has been ruled in or ruled out: SEPSIS [ ] Ruled in diagnosis [ ] Continue to treat [ ] Resolved [ XX ] Ruled out diagnosis [ ] Other diagnosis [ ] Unable to determine In addition, please specify: Present on Admission (POA): [ ] Yes [ XX ] No [ ] Unable to determine For continuity of documentation, please document condition throughout progress notes and discharge summary. Thank You. CLINICAL INDICATORS - SIGNS / SYMPTOMS / LABS / RESULTS AND LOCATION IN MR: PN DR. PAULINO BRYAN 10-08-19: ACUTE HEPATITIS, LIKELY REPRESENTS ACUTE ALCOHOL HEPATITIS, THROMBOCYTOPENIA, SEPSIS WITH UTI, ALCOHOL ABUSE WITH WITH WITHDRAWAL, POSSIBLE SEIZURE THIS MORNING. SHE DOES MEET SEPSIS CRITERIA AND IS CURRENTLY BEING TREATED WITH RESUSCITATION AND ANTIBIOTICS. BANDS: 10-07-19: 23% RISK FACTORS / RESULTS AND LOCATION IN MR: PN DR. PAULINO BRYAN 10-08-19: ACUTE HEPATITIS, LIKELY REPRESENTS ACUTE ALCOHOL HEPATITIS, THROMBOCYTOPENIA, SEPSIS WITH UTI, ALCOHOL ABUSE WITH WITH WITHDRAWAL TREATMENTS / RESULTS AND LOCATION IN MR: PN DR. PAULINO BRYAN 10-08-19: SHE DOES MEET SEPSIS CRITERIA AND IS CURRENTLY BEING TREATED WITH RESUSCITATION AND ANTIBIOTICS. MAR: 10-08-19: ROCEPHIN IV, 10-10-19: IVF NS (This form is maintained as a part of the permanent medical record) 2014 [employer]. All Rights Reserved HERIBERTO [email or web address] Office: [phone] [facility] HOSPITALFernie
--- NOTE | 2019-10-10 15:14 | PRG ---
DATE OF SERVICE: 10/10/2019 SUBJECTIVE: Ms. Connors had further withdrawal symptoms and agitation last night. She says she feels a lot better today. Minimal abdominal discomfort. No nausea or vomiting. She is tolerating her diet. She has remained hemodynamically stable. OBJECTIVE: VITAL SIGNS: Temperature 97.2, heart rate 80, blood pressure 129/89, and 95% oxygen saturation on room air. GENERAL: No acute distress. HEART: Regular rate and rhythm. LUNGS: Clear to auscultation bilaterally. ABDOMEN: Soft, nontender to palpation. EXTREMITIES: No peripheral edema. LABORATORY STUDIES: WBC 6.5, hemoglobin 9.6, platelets 77. INR stable at 1.2. Sodium 141, potassium 3.7, BUN 6, creatinine 0.67, total bilirubin up to 10.7, AST down to 169, ALT 44, alkaline phosphatase 93, albumin 3.1, ceruloplasmin level is normal at 20.4. Alpha-1 antitrypsin level is pending. ELIO is negative. ASMA is negative. AMA is negative. Viral hepatitis serologies negative. Ferritin elevated to 5228, iron elevated to 175, TIBC is low at 168. Hereditary hemochromatosis genetic profile is pending. ASSESSMENT AND PLAN: 1. Acute alcoholic hepatitis. Hepatic function has been stable with some downtrending of transaminases over the past couple of days. The climbing bilirubin itself is not particularly concerning. INR is stable. Discriminant function calculates out to only 18, which actually portends a good prognosis, as long as she is able to completely stop alcohol going forward. I discussed this at length with her. I understand prednisolone has been initiated given that she also had some stridor overnight. From a GI standpoint, this is reasonable, but not strictly indicated for her alcoholic hepatitis given the low discriminant function, would continue with the lactulose. Job ID: [id number]
--- NOTE | 2019-10-10 20:47 | PRG ---
DATE OF SERVICE: 10/10/2019 SUBJECTIVE: Michaela Connors is 50% to 75% more cooperative today. She is hallucinating less. OBJECTIVE: VITAL SIGNS: She is afebrile, heart rate is in the 90s, blood pressure 133/92. LUNGS: Unchanged. HEART: Unchanged. ABDOMEN: Unchanged. IMPRESSION AND PLAN: Alcohol withdrawal, improving. We will sign off. Job ID: [id number]
[2019-10-10] MEDS: Lorazepam 1 MG TAB PO PRN (21:16)
[2019-10-10] MEDS: Melatonin 3 MG TAB PO SCH (21:16)
[2019-10-11] MEDS: Lorazepam 2 MG/ML VIAL SLOW IVP PRN ×3 (00:54→20:09)
[2019-10-11] MEDS: cefTRIAXone\\ROCEPHIN 1 GM in Sodium Chloride 0.9% 100 ML IVPB SCH (03:33)
[2019-10-11] MEDS: Sodium Chloride 0.9% 1,000 ML IV SCH (04:46)
[2019-10-11 08:23] LABS: Hemoglobin 9.8 g/dL (12.0-16.0); Mean Corpuscular Hemoglobin 37.2 pg (27.0-31.0); Mean Platelet Volume 9.3 fL (7.4-10.4); Platelet Count 132 thou/uL (130-400); RBC Distribution Width 14.8 % (11.5-14.5); Red Blood Cell (RBC) Count 2.62 mill/uL (4.20-5.40); White Blood Cell (WBC) Count 7.8 thou/uL (4.8-10.8)
[2019-10-11 08:40] LABS: Anion Gap 13 mmol/L (10-20); BUN (Urea Nitrogen) 8 mg/dL (7.0-18.7); Calc. Creatinine Clearance 186 mL/min (70-130); Calcium 8.9 mg/dL (7.8-10.44); Carbon Dioxide 21 mmol/L (22-29); Chloride 108 mmol/L (98-107); Estimated GFR-MDRD Greater than 90; Glucose 90 mg/dL (70-105); Potassium 3.5 mmol/L (3.5-5.1); Sodium 138 mmol/L (136-145)
[2019-10-11 09:05] LABS: Band 6 % (5-11); Eosinophils 2 % (0-10); Lymphocytes 26 % (21-51); MDiff Complete? YES; Macrocytosis MODERATE=16-30 cells (100X) (0-5/hpf); Monocytes 16 % (0-10); Neutrophil 50 % (42-75); Nucleated RBC 2 % (0); Platelet Morphology Comment Appears Adequate; Polychromasia MODERATE = 3-4 cells (100X) (0-2/hpf)
[2019-10-11] MEDS: chlordiazePOXIDE HCl 25 MG CAP PO SCH ×3 (10:05→20:55)
[2019-10-11] MEDS: Lisinopril 20 MG TAB PO SCH (10:05)
[2019-10-11] MEDS: prednisoLONE 15 MG/5 ML UDCUP PO SCH (10:06)
[2019-10-11] MEDS: Lactinex Tablet PO SCH (10:19)
--- NOTE | 2019-10-11 12:31 | PQF ---
DATE: 10-11-19 ATTN: DR. TREY ALEGRE I DID NOT SEE OR EVALUATE THIS PATIENT, PLEASE REMOVE QUERY Please exercise your independent, professional judgment in responding to the clarification form. Clinical indicators are provided on the bottom of this form for your review Please check appropriate box(s) to clarify if the following diagnosis has been ruled in or ruled out: NSTEMI [ ] Ruled in diagnosis [ ] Continue to treat [ ] Resolved [ ] Ruled out diagnosis [ ] Other diagnosis [ ] Unable to determine In addition, please specify: Present on Admission (POA): [ ] Yes [ ] No [ ] Unable to determine For continuity of documentation, please document condition throughout progress notes and discharge summary. Thank You. CLINICAL INDICATORS - SIGNS / SYMPTOMS / LABS / RESULTS AND LOCATION IN MR: PN DR. ALEGRE 10-09-19: MEDICAL HX OF HTN, CVA, TYPE 2 DIABETES PRESENTING WITH CHEST PAIN, ADMITTED FOR NSTEMI PN DR. ALEGRE 10-09-19: NSTEMI: TROP PEAKED AT 0.059, CONTINUE ASPIRIN, STATIN, BETA PARIS, LISINOPRIL, CARDIOLOGY CONSULT, PLAN FOR CATH , EF 55-60% WITH DIASTOLIC DYSFUNCTION, RESUME NITRO PATCH FOR NOW TROPONIN: 10-08-19: 0.115 10-09-19: 0.059 10-09-19: 0.053 RISK FACTORS / RESULTS AND LOCATION IN MR: H&P: HISTORY OF CVA WITH RESIDUAL R SIDED NEUROLOGICAL DEFICITS, HTN, TYPE 2 DM, CKD 3, BIPOLAR DISORDER, DEPRESSION TREATMENTS / RESULTS AND LOCATION IN MR: PN DR. ALEGRE 10-09-19: NSTEMI: TROP PEAKED AT 0.059, CONTINUE ASPIRIN, STATIN, BETA [place], LISINOPRIL, CARDIOLOGY CONSULT, PLAN FOR CATH , EF 55-60% WITH DIASTOLIC DYSFUNCTION, RESUME NITRO PATCH FOR NOW (This form is maintained as a part of the permanent medical record) 2014 [employer] All Rights Reserved HERIBERTO [email or web address] Office: [phone] DAGOBERTO
--- NOTE | 2019-10-11 13:35 | PDOC.HOSPP ---
- Subjective Subjective: Seen and examined. Clinically improving. No hallucinating last 24 hours. Not shaky this a.m. and is waiting her a.m. dose of Librium. Patient improving on maximal medical therapy. Stable for downgraded to medical unit. - Objective Vital Signs & Weight: Vital Signs (12 hours) Temp Pulse Pulse BP BP BP Pulse Ox 10/11/19 11:48 98.2 F 10/11/19 10:05 131/87 10/11/19 09:59 102 H 108 H 121/69 118/75 10/11/19 08:00 99 10/11/19 07:41 97.7 F 10/11/19 04:01 98.0 F Pulse Ox 10/11/19 11:48 10/11/19 10:05 10/11/19 09:59 96 10/11/19 08:00 10/11/19 07:41 10/11/19 04:01 Weight Admit Weight 229 lb 4.492 oz Weight 246 lb 8 oz Most Recent Monitor Data Heart Rate from ECG 108 NIBP 118/75 NIBP BP-Mean 89 Respiration from ECG 23 SpO2 94 I&O: 10/10/19 10/11/19 10/12/19 06:59 06:59 06:59 Intake Total 1230 1902 Output Total 1350 850 Balance -120 1052 Result Diagrams: 10/11/19 08:08 10/11/19 08:09 Hospitalist ROS - Review of Systems All other systems reviewed; all pertinent +/- noted in HPI/Subj - Medication Medications: Active Medications Generic Name Dose Route Start Last Admin Trade Name Freq PRN Reason Stop Dose Admin Acidophilus 1 tab 10/10/19 09:00 10/11/19 10:19 Floranex PO 1 tab DAILY AYESHA Administration Albuterol/Ipratropium 3 ml 10/08/19 08:41 10/10/19 19:13 Duoneb NEB 3 ml Q4H PRN Administration SOB &/or Wheezing Chlordiazepoxide HCl 25 mg 10/09/19 15:00 10/11/19 10:05 Librium PO 25 mg TID AYESHA Administration Ceftriaxone Sodium 1 gm/ 100 mls @ 200 mls/hr 10/08/19 03:00 10/11/19 03:33 Sodium Chloride IVPB 100 mls Q24HR AYESHA Administration Lactulose 20 gm 10/08/19 15:00 10/11/19 10:05 Lactulose PO 20 gm TID AYESHA Administration Lisinopril 20 mg 10/10/19 09:00 10/11/19 10:05 Zestril PO 20 mg DAILY AYESHA Administration Lorazepam 1 mg 10/08/19 08:35 10/09/19 12:56 Ativan SLOW IVP 1 mg Q2H PRN Administration Seizures Lorazepam 1 mg 10/09/19 08:59 10/10/19 21:16 Ativan PO 1 mg Q4H PRN Administration Anxiety/Agitation Lorazepam 1 mg 10/09/19 12:58 10/11/19 13:00 Ativan SLOW IVP 1 mg Q4H PRN Administration Anxiety/Agitation Melatonin 3 mg 10/08/19 08:41 10/09/19 01:50 Melatonin PO 3 mg HSPRN PRN Administration Insomnia Melatonin 9 mg 10/09/19 21:00 10/10/19 21:16 Melatonin PO 9 mg HS AYESHA Administration Metoprolol Succinate 100 mg 10/10/19 09:00 10/11/19 10:05 Toprol Xl PO 100 mg DAILY AYESHA Administration Prednisolone 40 mg 10/10/19 09:00 10/11/19 10:06 Orapred PO 40 mg DAILY AYESHA Administration Ziprasidone 20 mg 10/09/19 13:34 10/09/19 20:09 Geodon IM 20 mg Q4H PRN Administration Agitation - Exam General Appearance: NAD, awake alert Eye: PERRL ENT: normocephalic atraumatic, moist mucosa Neck: supple, symmetric, no lymphadenopathy Heart: no murmur, no gallops, no rubs Heart - other findings: Sinus tachycardia Respiratory: CTAB, no wheezes, no rales, no ronchi Respiratory - other findings: Mild wheezing over the larynx, improved from yesterday Gastrointestinal: soft, non-tender, no guarding, no rigidity Extremities: no edema Skin: no rashes Skin - other findings: Bruising on knees and shins bilaterally from falls Neurological: cranial nerve grossly intact, no focal deficits Musculoskeletal: generalized weakness Psychiatric: normal affect, normal behavior, A&O x 3 Hosp A/P (1) Alcohol abuse Code(s): F10.10 - ALCOHOL ABUSE, UNCOMPLICATED Status: Acute (2) Alcohol withdrawal delirium Code(s): F10.231 - ALCOHOL DEPENDENCE WITH WITHDRAWAL DELIRIUM Status: Acute (3) Seizure Code(s): R56.9 - UNSPECIFIED CONVULSIONS Status: Acute (4) Alcoholic hepatitis Code(s): K70.10 - ALCOHOLIC HEPATITIS WITHOUT ASCITES Status: Acute (5) Altered mental status Code(s): R41.82 - ALTERED MENTAL STATUS, UNSPECIFIED Status: Acute (6) HTN (hypertension) Code(s): I10 - ESSENTIAL (PRIMARY) HYPERTENSION Status: Acute (7) Obesity Code(s): E66.9 - OBESITY, UNSPECIFIED Status: Acute (8) Alcohol abuse with intoxication with complication Code(s): F10.129 - ALCOHOL ABUSE WITH INTOXICATION, UNSPECIFIED Status: Acute - Plan Plan: Intermediate medical care, stable for medical unit gastroenterology consultation, recommendations appreciated PT/ OT eval and treat - several falls at home - may benefit for short course of rehab to continue to wean Librium in a controlled setting Wean Librium with slow taper over the next 1-2 weeks Patient continues to minimize the severity of Etoh use and states she only has 2 drinks per day, she hides it from her but he believes +6 drinks daily oral Ativan PRN withdrawal symptoms IV Ativan PRN agitation and anxiety IV Ativan PRN seizure seizure precautions with acute alcoholic hepatitis consideration continue steroids UTI controlled on ABX IV antibiotics urine culture, de-escalate to culture and sensitivity as able status post banana bag Continue home medications for blood pressure and tachycardia blood pressure control blood sugar control G.I. prophylaxis DVT prophylaxis
[2019-10-11 14:10] LABS: Alpha-1-Antitrypsin 140 mg/dL (100-188)
--- NOTE | 2019-10-11 14:30 | PRG ---
DATE OF SERVICE: 10/11/2019 SUBJECTIVE: Ms. Connors is feeling better, less shaky, more mentally clear. Plan is to move her to the medical floor today. She has been tolerating her diet. No abdominal pain or nausea. OBJECTIVE: VITAL SIGNS: Temperature is 98.2, pulse 108, blood pressure 118/75, and 94% oxygen saturation on room air. GENERAL: She is jaundiced, sitting up in the edge of bed comfortably, in no distress, conversing appropriately. HEART: Regular. Tachycardia. LUNGS: Clear to auscultation bilaterally. ABDOMEN: Soft, nontender. EXTREMITIES: No peripheral edema. LABORATORY STUDIES: WBC 7.8, hemoglobin 9.8, platelets 132. Sodium 138, potassium 3.5, BUN 8, creatinine 0.71. ASSESSMENT AND PLAN: 1. Acute alcoholic hepatitis. Transaminases trended down over the past few days. Repeat CMP tomorrow. Interval rise in bilirubin is not unexpected, but transaminases have been going down. Recheck INR tomorrow as well. 2. Probable cirrhosis. She has significant thrombocytopenia, but note that has been improving this hospitalization as well. Reinforced with the patient that she needs to completely abstain from all alcohol going forward. 3. Alcohol withdrawal. Symptoms are improving. GI will continue to follow along this hospitalization. Dr. Matias is covering for GI this weekend. Job ID: [id number]
[2019-10-11] MEDS: Melatonin 3 MG TAB PO SCH (20:54)
[2019-10-12] MEDS: cefTRIAXone\\ROCEPHIN 1 GM in Sodium Chloride 0.9% 100 ML IVPB SCH (03:59)
[2019-10-12 06:36] LABS: INR-International Normal Ratio 1.1; Prothrombin Time 14.6 SEC (12.0-14.7)
[2019-10-12 06:55] LABS: ALT (SGPT) 44 U/L (8-55); AST (SGOT) 133 U/L (5-34); Albumin 3.2 g/dL (3.5-5.0); Alkaline Phosphatase 116 U/L (40-110); Anion Gap 14 mmol/L (10-20); BUN (Urea Nitrogen) 10 mg/dL (7.0-18.7); Bilirubin, Total 12.5 mg/dL (0.2-1.2); Calc. Creatinine Clearance 181 mL/min (70-130); Carbon Dioxide 21 mmol/L (22-29); Chloride 108 mmol/L (98-107); Estimated GFR-MDRD 88; Globulin 2.8 g/dL (2.4-3.5); Glucose 107 mg/dL (70-105); Potassium 3.4 mmol/L (3.5-5.1); Sodium 140 mmol/L (136-145)
[2019-10-12 06:58] LABS: Band 1 % (5-11); Eosinophils 4 % (0-10); Hemoglobin 10.1 g/dL (12.0-16.0); Hypochromia SLIGHT = 6-15 cells (100X) (0-5/hpf); Lymphocytes 20 % (21-51); MDiff Complete? YES; Mean Corpuscular Hemoglobin 35.4 pg (27.0-31.0); Monocytes 19 % (0-10); Neutrophil 56 % (42-75); Platelet Count 174 thou/uL (130-400); Platelet Morphology Comment Appears Adequate; RBC Distribution Width 15.1 % (11.5-14.5); Red Blood Cell (RBC) Count 2.86 mill/uL (4.20-5.40); Target Cells SLIGHT = 2-5 cells (100X) (0-1/hpf); White Blood Cell (WBC) Count 8.4 thou/uL (4.8-10.8)
[2019-10-12] MEDS: Lisinopril 20 MG TAB PO SCH (08:01)
[2019-10-12] MEDS: Lactinex Tablet PO SCH (08:01)
[2019-10-12] MEDS: chlordiazePOXIDE HCl 25 MG CAP PO SCH ×3 (08:01→20:26)
[2019-10-12] MEDS: Folic Acid 1 MG TAB PO SCH (08:02)
[2019-10-12] MEDS: Thiamine 100 MG TAB PO SCH (08:02)
[2019-10-12] MEDS: prednisoLONE 15 MG/5 ML UDCUP PO SCH (08:03)
[2019-10-12] MEDS: Lorazepam 1 MG TAB PO PRN (12:52)
[2019-10-12] MEDS ORDERED: Acetaminophen 325 MG TAB PO SCH (13:30)
--- NOTE | 2019-10-12 16:51 | PDOC.HOSPP ---
- Subjective Encounter Date: 10/12/19 Encounter Time: 11:45 Subjective: pt up in bed no complains - Objective Vital Signs & Weight: Vital Signs (12 hours) Temp Pulse Resp BP BP Pulse Ox 10/12/19 08:01 124/81 10/12/19 07:57 99.1 F 107 H 20 124/81 94 L Weight Admit Weight 229 lb 4.492 oz Weight 246 lb 8 oz Most Recent Monitor Data Heart Rate from ECG 108 NIBP 119/86 NIBP BP-Mean 97 Respiration from ECG 23 SpO2 96 I&O: 10/11/19 10/12/19 10/13/19 06:59 06:59 06:59 Intake Total 1902 820 Output Total 850 Balance 1052 820 Result Diagrams: 10/12/19 05:53 10/12/19 05:53 Hospitalist ROS - Review of Systems Cardiovascular: denies: chest pain, palpitations, orthopnea, paroxysmal noc. dyspnea, edema, light headedness, other Gastrointestinal: denies: nausea, vomiting, abdominal pain, diarrhea, constipation, melena, hematochezia, other Genitourinary: denies: dysuria, frequency, incontinence, hematuria, retention, other - Medication Medications: Active Medications Generic Name Dose Route Start Last Admin Trade Name Freq PRN Reason Stop Dose Admin Acidophilus 1 tab 10/10/19 09:00 10/12/19 08:01 Floranex PO 1 tab DAILY AYSEHA Administration Albuterol/Ipratropium 3 ml 10/08/19 08:41 10/11/19 17:32 Duoneb NEB 3 ml Q4H PRN Administration SOB &/or Wheezing Chlordiazepoxide HCl 25 mg 10/09/19 15:00 10/12/19 15:42 Librium PO 25 mg TID AYESHA Administration Folic Acid 1 mg 10/12/19 09:00 10/12/19 08:02 Folvite PO 1 mg DAILY AYESHA Administration Ceftriaxone Sodium 1 gm/ 100 mls @ 200 mls/hr 10/08/19 03:00 10/12/19 03:59 Sodium Chloride IVPB 100 mls Q24HR AYESHA Administration Lactulose 20 gm 10/08/19 15:00 10/12/19 15:42 Lactulose PO 20 gm TID AYESHA Administration Lisinopril 20 mg 10/10/19 09:00 10/12/19 08:01 Zestril PO 20 mg DAILY AYESHA Administration Lorazepam 1 mg 10/08/19 08:35 10/09/19 12:56 Ativan SLOW IVP 1 mg Q2H PRN Administration Seizures Lorazepam 1 mg 10/09/19 08:59 10/12/19 12:52 Ativan PO 1 mg Q4H PRN Administration Anxiety/Agitation Lorazepam 1 mg 10/09/19 12:58 10/11/19 20:09 Ativan SLOW IVP 1 mg Q4H PRN Administration Anxiety/Agitation Melatonin 3 mg 10/08/19 08:41 10/09/19 01:50 Melatonin PO 3 mg HSPRN PRN Administration Insomnia Melatonin 9 mg 10/09/19 21:00 10/11/19 20:54 Melatonin PO 9 mg HS AYESHA Administration Metoprolol Succinate 100 mg 10/10/19 09:00 10/12/19 08:01 Toprol Xl PO 100 mg DAILY AYESHA Administration Prednisolone 40 mg 10/10/19 09:00 10/12/19 08:03 Orapred PO 40 mg DAILY AYESHA Administration Thiamine HCl 100 mg 10/12/19 09:00 10/12/19 08:02 Thiamine PO 100 mg DAILY AYESHA Administration Ziprasidone 20 mg 10/09/19 13:34 10/09/19 20:09 Geodon IM 20 mg Q4H PRN Administration Agitation - Exam Neck: negative: supple, symmetric, no JVD, no thyromegaly, no lymphadenopathy, no carotid bruit, JVD Heart: negative: RRR, no murmur, no gallops, no rubs, normal peripheral pulses, irregular, diminshed peripheral pulses, murmur present, II/IV, III/IV Respiratory: negative: CTAB, no wheezes, no rales, no ronchi, normal chest expansion, no tachypnea, normal percussion, rales, rhonchi, tachypneic, wheezes Gastrointestinal: negative: soft, non-tender, non-distended, normal bowel sounds , no palpable masses, no hepatomegaly, no splenomegaly, no bruit, no guarding, no rigidity, tender to palpation, distended, diminished bowl sounds, voluntary guarding Hosp A/P (1) Alcohol abuse Code(s): F10.10 - ALCOHOL ABUSE, UNCOMPLICATED Status: Acute (2) Alcohol abuse with intoxication with complication Code(s): F10.129 - ALCOHOL ABUSE WITH INTOXICATION, UNSPECIFIED Status: Acute (3) Alcoholic hepatitis Code(s): K70.10 - ALCOHOLIC HEPATITIS WITHOUT ASCITES Status: Acute (4) Altered mental status Code(s): R41.82 - ALTERED MENTAL STATUS, UNSPECIFIED Status: Acute (5) HTN (hypertension) Code(s): I10 - ESSENTIAL (PRIMARY) HYPERTENSION Status: Acute (6) Obesity Code(s): E66.9 - OBESITY, UNSPECIFIED Status: Acute (7) Seizure Code(s): R56.9 - UNSPECIFIED CONVULSIONS Status: Acute - Plan will give her tylenol x1, her bili is up will monitor. will stop abx urine cx is normal. she is on steroids.
[2019-10-12] MEDS: Melatonin 3 MG TAB PO SCH (20:25)
[2019-10-12 20:41] VITALS: TEMP 98.7
[2019-10-13 07:53] VITALS: BP 118/84
[2019-10-13] MEDS: Thiamine 100 MG TAB PO SCH (09:45)
[2019-10-13] MEDS: Folic Acid 1 MG TAB PO SCH (09:45)
[2019-10-13] MEDS: chlordiazePOXIDE HCl 25 MG CAP PO SCH (09:45)
[2019-10-13] MEDS: Lactinex Tablet PO SCH (09:45)
[2019-10-13] MEDS: Lisinopril 20 MG TAB PO SCH (12:42)
[2019-10-13] MEDS: prednisoLONE 15 MG/5 ML UDCUP PO SCH (12:52)
--- NOTE | 2019-10-14 09:45 | DIS ---
DATE OF ADMISSION: 10/07/2019 DATE OF DISCHARGE: 10/13/2019 REASON FOR HOSPITALIZATION: Alcohol withdrawal. SIGNIFICANT FINDINGS: The patient was found to have acute alcoholic hepatitis and alcohol withdrawal in addition to urinary tract infection. PROCEDURES PERFORMED AND TREATMENTS RENDERED: The patient admitted to [facility] in [place], [place] on 10/08/2019, with alcohol withdrawal. The patient subsequently suffered seizure-type activity and long-acting benzodiazepine medications with Librium were added in addition to short-acting medications with Ativan. After benzodiazepine therapy, there was no further seizure-type activity. CT scan of the brain was performed-please see full radiographic report for details. There is no acute intracranial hemorrhage or mass identified. The patient with CT scan of the abdomen-please see full report for details-the patient with hepatomegaly with diffuse fatty infiltration of liver and subcentimeter focus within the left hepatic lobe, too small to characterize, which should be followed in six months with Gastroenterology in the outpatient clinic. The patient was seen and evaluated by Gastroenterology-please see full consultation notes and progress notes for details. Gastroenterology titrating appropriate medications. The patient was also diagnosed with urinary tract infection on admission and she received IV antibiotics. Once it was determined that the patient was not having any sepsis, she was started on oral steroids for alcoholic hepatitis. The patient's blood work was trended and she had good improvement throughout the rest of her hospitalization and there were no further problems. The patient was placed on a long taper of Librium so that she can gradually be brought off alcohol. The patient placed on steroids for acute alcoholic hepatitis, folic acid, thiamine, and Protonix. At no point that the patient had any episodes of bleeding throughout her hospitalization and no endoscopy was recommended per Gastroenterology. The patient recommended safe for discharge by all specialists on 10/13/2019. CONDITION ON DISCHARGE: Stable. SPECIFIC INSTRUCTIONS FOR THE PATIENT/FAMILY: 1. The patient recommended to abstain from all alcohol use. 2. The patient recommended to have a tapering dose of Librium to slowly, off alcohol dependency. 3. The patient is recommended to take all other medications as directed. 4. The patient recommended to follow up with primary care physician in the next 5 to 7 days, who will further manage all home medications. 5. The patient is recommended to follow up with Gastroenterology in the next 1 to 2 weeks. 6. The patient and family were explicitly informed that if any worsening of mentation, weakness, fever, or if she notices any blood or black in her stool or vomitus, she is to return to acute care hospital immediately for revaluation. 7. If the patient's symptoms return or worsen, she is recommended to return to acute care hospital immediately for reevaluation. DISCHARGE MEDICATIONS: 1. Librium 5 mg tablets with the following taper; four tabs p.o. t.i.d. for 3 days, then three tabs p.o. t.i.d. for 3 days, then two tabs p.o. three times per day for 3 days, then one tablet p.o. three times per day for three days and then one tablet p.o. b.i.d. for 3 days, then one tablet p.o. daily for three days then stop, #99 tabs. 2. Probiotic one capsule p.o. daily. 3. Fish oil 800 mg p.o. daily. 4. Metoprolol succinate 100 mg extended release p.o. daily. 5. Lisinopril 20 mg one tablet p.o. daily. 6. Prednisolone 12 day Dosepak with tapering dose. 7. Thiamine 100 mg one tablet p.o. daily. 8. Protonix 40 mg p.o. q.a.m. on empty stomach. 9. Lactulose 20 g p.o. t.i.d., hold dose for loose stools. 10. Folic acid 1 mg p.o. daily. 11. The patient completed a full course of intravenous antibiotics in the acute care hospital and urine culture demonstrated sterilization of her urine. Greater than 38 minutes spent coordinating care and discharge process for this patient. Job ID: [id number]
== END 2019-10-13 13:35 | disposition home or self-care (01) | DRG 896 ==
LOC: ERS 15:53 → T4-B 23:10 → IMCU/EMU 10-08 08:25 → T4-A 10-11 17:03
PROVIDERS: ADMIT Hospitalist; ATTEND Hospitalist
DX: F10.231 Alcohol dependence with withdrawal delirium (principal); G93.41 Metabolic encephalopathy; N39.0 Urinary tract infection, site not specified; E87.2 Acidosis; K70.10 Alcoholic hepatitis without ascites; F10.221 Alcohol dependence with intoxication delirium; R29.6 Repeated falls; E78.5 Hyperlipidemia, unspecified; F41.8 Other specified anxiety disorders; K70.40 Alcoholic hepatic failure without coma; D69.6 Thrombocytopenia, unspecified; E66.01 Morbid (severe) obesity due to excess calories; R56.9 Unspecified convulsions; I10 Essential (primary) hypertension; G62.1 Alcoholic polyneuropathy; R00.0 Tachycardia, unspecified; D63.8 Anemia in other chronic diseases classified elsewhere; Z90.49 Acquired absence of other specified parts of digestive tract; Z88.8 Allergy status to other drugs, medicaments and biological substances; Z68.37 Body mass index [BMI] 37.0-37.9, adult
CPT/HCPCS: 36415; 36416; 70450; 71045; 74177; 76705; 80048; 80053; 80074; 80306; 80307; 81003; 81015; 81025; 81256; 82103; 82104; 82140; 82247; 82390; 82550; 82728; 82805; 83516; 83540; 83550; 85025; 85610; 86038; 86225; 87086; 94640; 96361; 96374; 96375; 96376; J0696; J2060; J3411; J3486; J3490; J7042; J7510; J7620; Q9967